=== PATIENT | male | born 1990 | race Caucasian/White ===

== ENCOUNTER 2020-11-21 21:27 | Emergency (ER) | payer BC, OTHER ==
[2020-11-21] MEDS ORDERED: Ondansetron 4 MG Tab.DIS PO ONE (22:09)
[2020-11-21] MEDS ORDERED: Ketorolac 60 MG/2 ML SDV IM ONE (22:09)
[2020-11-21] MEDS ORDERED: Ondansetron 4 MG/2 ML SDV IVPUSH ONE (22:16)
[2020-11-21] MEDS ORDERED: Sodium Chloride 0.9% 10 ML Syringe FLUSH PRN (22:16)
[2020-11-21] MEDS ORDERED: Ketorolac 30 MG/ML SDV IVPUSH ONE (22:16)
--- NOTE | 2020-11-21 22:16 | EDM.PDOC ---
ED HPI GENERAL MEDICAL PROBLEM - General Chief Complaint: Abdominal Pain Stated Complaint: ABDOM. PAIN RIGHT SIDE Time Seen by Provider: 11/21/20 22:05 Source of Information: Reports: Patient, Family, RN Notes Reviewed History Limitations: Reports: No Limitations - History of Present Illness INITIAL COMMENTS - FREE TEXT/NARRATIVE: 30-year-old gentleman presents emergency department day complaint of right flank pain, he states it wraps around to his back does shoot down into his groin pain is very intense he has had some nausea and vomiting no fevers no shortness of breath or chest pain pain started earlier today in the afternoon and has progressively gotten worse. There is a question of stones in his past however was not diagnosed was relieved with urination Right Upper Abdomen Pain Score (Numeric/FACES): 8 - Related Data Allergies Allergy/AdvReac Type Severity Reaction Status Date / Time Sulfa (Sulfonamide Allergy Cannot Verified 11/21/20 21:45 Antibiotics) Remember Home Meds: Home Meds Fexofenadine [Constanza] 1 tab PO DAILY 11/21/20 [History] Pseudoephedrine HCl [Sudafed] 1 tab PO BEDTIME 11/21/20 [History] Tamsulosin [Tamsulosin 24 Hr] 0.4 mg PO DAILY #10 cap.er 11/21/20 [Rx] Past Medical History Musculoskeletal History: Reports: Other (See Below) Other Musculoskeletal History: scoliosis - Infectious Disease History Infectious Disease History: Reports: Chicken Pox Social & Family History - Tobacco Use Tobacco Use Status *Q: Current Every Day Tobacco User Years of Tobacco use: 10 Packs/Tins Daily: 0.5 - Recreational Drug Use Recreational Drug Use: No ED ROS GENERAL - Review of Systems Review Of Systems: See Below Constitutional: Denies: Fever, Chills HEENT: Reports: No Symptoms Respiratory: Reports: No Symptoms Cardiovascular: Reports: No Symptoms GI/Abdominal: Reports: Abdominal Pain, Nausea, Vomiting : Reports: Flank Pain ED EXAM, GI/ABD - Physical Exam Exam: See Below Exam Limited By: No Limitations General Appearance: Alert, Mild Distress Respiratory/Chest: No Respiratory Distress, Lungs Clear, Normal Breath Sounds, No Accessory Muscle Use, Chest Non-Tender Cardiovascular: Regular Rate, Rhythm, No Murmur GI/Abdominal Exam: Soft, Tender (right flank food for him) Course - Vital Signs Last Recorded V/S: Last Vital Signs Temp 97.8 F 11/21/20 21:46 Pulse 72 11/21/20 21:46 Resp 18 11/21/20 21:46 BP 152/93 H 11/21/20 21:46 Pulse Ox 98 11/21/20 21:46 - Orders/Labs/Meds Orders: Active Orders 24 hr Category Date Time Status Peripheral IV Care [RC] . DIRECTED Care 11/21/20 22:17 Active Sodium Chloride 0.9% [Saline Flush] Med 11/21/20 22:16 Active 10 ml FLUSH ASDIRECTED PRN Peripheral IV Insertion Adult [OM.PC] Urgent Oth 11/21/20 22:16 Ordered Medication Orders Sodium Chloride (Sodium Chloride 0.9% 10 Ml Syringe) 10 ml FLUSH ASDIRECTED PRN PRN Reason: Keep Vein Open Last Admin: 11/21/20 22:24 Dose: 10 ml Documented by: CATRACHITO Labs: Laboratory Tests 11/21/20 11/21/20 11/21/20 Range/Units 22:00 22:00 22:09 WBC 17.8 H (4.5-11.0) K/uL RBC 4.80 (4.30-5.90) M/uL Hgb 15.2 H (12.0-15.0) g/dL Hct 45.3 (40.0-54.0) % MCV 94 (80-98) fL MCH 32 H (27-31) pg MCHC 34 (32-36) % Plt Count 254 (150-400) K/uL Neut % (Auto) 79.5 H (36-66) % Lymph % (Auto) 10.4 L (24-44) % [place] % (Auto) 9.5 H (2-6) % Eos % (Auto) 0.4 L (2-4) % Baso % (Auto) 0.2 (0-1) % Sodium 143 (140-148) mmol/L Potassium 3.7 (3.6-5.2) mmol/L Chloride 103 (100-108) mmol/L Carbon Dioxide 29 (21-32) mmol/L Anion Gap 10.8 (5.0-14.0) mmol/L BUN 29 H (7-18) mg/dL Creatinine 1.2 (0.8-1.3) mg/dL Est Cr Clr Drug Dosing 75.80 mL/min Estimated GFR (MDRD) > 60 (>60) Glucose 106 (74-106) mg/dL Calcium 9.5 (8.5-10.1) mg/dL Urine Color Yellow (YELLOW) Urine Appearance Clear (CLEAR) Urine pH >= 1.0 L (5.0-8.0) Ur Specific [place] 6.000 H (1.008-1.030) Urine Protein Negative (NEGATIVE) mg/dL Urine Glucose (UA) Normal (NEGATIVE) mg/dL Urine Ketones Negative (NEGATIVE) mg/dL Urine Occult Blood Moderate (NEGATIVE) Urine Nitrite Negative (NEGATIVE) Urine Bilirubin Negative (NEGATIVE) Urine Urobilinogen 0.2 (0.2-1.0) EU/dL Ur Leukocyte Esterase Negative (NEGATIVE) Urine RBC 0-5 (0-5) Urine WBC 0-5 (0-5) Ur Epithelial Cells Not seen Amorphous Sediment Few Urine Bacteria Few Urine Mucus Not seen Meds: Medications Generic Name Dose Route Start Last Admin Trade Name Freq PRN Reason Stop Dose Admin Sodium Chloride 10 ml 11/21/20 22:16 11/21/20 22:24 Sodium Chloride 0.9% 10 Ml Syringe FLUSH 10 ml ASDIRECTED PRN Administration Keep Vein Open Discontinued Medications Generic Name Dose Route Start Last Admin Trade Name Freq PRN Reason Stop Dose Admin Ketorolac Tromethamine 60 mg 11/21/20 22:09 Ketorolac 60 Mg/2 Ml Sdv IM 11/21/20 22:10 ONETIME ONE Ketorolac Tromethamine 30 mg 11/21/20 22:16 11/21/20 22:24 Ketorolac 30 Mg/Ml Sdv IVPUSH 11/21/20 22:17 30 mg ONETIME ONE Administration Ketorolac Tromethamine Confirm 11/21/20 22:19 Ketorolac 30 Mg/Ml Sdv Administered 11/21/20 22:20 Dose 30 mg .ROUTE .STK-MED ONE Ondansetron HCl 4 mg 11/21/20 22:09 Ondansetron 4 Mg Tab.Dis PO 11/21/20 22:10 ONETIME ONE Ondansetron HCl 4 mg 11/21/20 22:16 11/21/20 22:24 Ondansetron 4 Mg/2 Ml Sdv IVPUSH 11/21/20 22:17 4 mg ONETIME ONE Administration Ondansetron HCl Confirm 11/21/20 22:19 Ondansetron 4 Mg/2 Ml Sdv Administered 11/21/20 22:20 Dose 4 mg .ROUTE .STK-MED ONE Departure - Departure Time of Disposition: 23:43 Disposition: Home, Self-Care 01 Condition: Fair Clinical Impression: Nephrolithiasis - Discharge Information Prescriptions: Tamsulosin [Tamsulosin 24 Hr] 0.4 mg PO DAILY #10 cap.er Instructions: Kidney Stones, [id number] Referrals: PCP,None [Primary Care Provider] - Forms: ED Department Discharge Additional Instructions: Use the ketorolac as needed for pain control, this is for baseline pain if you have breakthrough pain use the narcotic hydrocodone. Use Zofran as needed for nausea and vomiting symptoms, use the Flomax to help facilitate passage of the stone. Please followup with your primary care provider in 3-5 days if not better, please call return to the emergency department with worsening of symptoms. Your medication of Flomax has been faxed to [facility] pharmacy Sepsis Event Note (ED) - Evaluation Sepsis Screening Result: No Definite Risk - Focused Exam Vital Signs: Vital Signs Temp Pulse Resp BP Pulse Ox 11/21/20 21:46 97.8 F 72 18 152/93 H 98 11/21/20 21:43 97.8 F 72 18 152/93 H 98 - My Orders Last 24 Hours: My Active Orders 11/21/20 22:16 Sodium Chloride 0.9% [Saline Flush] 10 ml FLUSH ASDIRECTED PRN Peripheral IV Insertion Adult [OM.PC] Urgent 11/21/20 22:17 Peripheral IV Care [RC] . DIRECTED - Assessment/Plan Last 24 Hours: My Active Orders 11/21/20 22:16 Sodium Chloride 0.9% [Saline Flush] 10 ml FLUSH ASDIRECTED PRN Peripheral IV Insertion Adult [OM.PC] Urgent 11/21/20 22:17 Peripheral IV Care [RC] . DIRECTED Plan: Assessment Acuity = acute Site and laterality = 4 mm nephrolithiasis right ureter Etiology = unknown Manifestations = pain Location of injury = Home Lab values = WBC elevated at 17 consistent leukocytosis remainder CBC unremarkable BMP unremarkable CT scan describes the nephrolithiasis Plan Beny Lee I did provide him a copy of his CT scan result prescription for Flomax 0.4 mg 1 tab p.o. daily faxed to [facility], [place] med prescriptions ketorolac 10 mg 1 tab p.o. 4 times daily as needed total #20, hydrocodone 5/325 1 tab p.o. every 4-6 hours as needed total #10 and Zofran 4 mg ODT 1 tab p.o. 3 times daily as needed total #5, follow-up primary care 3 to 5 days if not better This note was dictated using [employer]erd[employer] voice recognition software please call with any questions on syntax or grammar.
[2020-11-21] MEDS ORDERED: Ondansetron 4 MG/2 ML SDV ONE (22:19)
[2020-11-21] MEDS ORDERED: Ketorolac 30 MG/ML SDV ONE (22:19)
--- NOTE | 2020-11-21 23:13 | CRLCT ---
INDICATION: Right flank pain TECHNIQUE: CT Abdomen and pelvis without i.v. contrast. Coronal and sagittal reformats were obtained. COMPARISON: None FINDINGS: Lower chest: Unremarkable. Liver: Unremarkable. Spleen: Unremarkable. Pancreas: Unremarkable. Gallbladder: Unremarkable. Kidney: There is a 4 mm stone present in the right ureterovesicular junction causing mild hydroureter and mild renal pelvicaliectasis. There is a 1 mm stone present in the mid zone of the right kidney. Left kidney and left ureter are unremarkable. Adrenal: Unremarkable. Bowel: Unremarkable. The appendix is normal in appearance and size. Vascular: Unremarkable. Lymph: Unremarkable. Peritoneum: Unremarkable. No pneumoperitoneum is seen. No significant ascites is noted. Pelvis: Unremarkable. Soft tissue: Unremarkable. Bone: Mild dextroscoliosis of the thoracolumbar spine is present. IMPRESSION: 1. There is a 4 mm stone present in the right ureterovesicular junction causing mild hydroureter and mild renal pelvicaliectasis. Dictated by Sean Riley MD @ 11/21/2020 11:10:21 PM Please note that all CT scans at this facility use dose modulation, iterative reconstruction, and/or weight-based dosing when appropriate to reduce radiation dose to as low as reasonably achievable. Dictated by: Sean Riley MD @ 11/21/2020 23:11:47 (Electronically Signed)
[2020-11-22] MEDS ORDERED: Tamsulosin 0.4 MG Cap.ER PO ONE (00:07)
[2020-11-22] MEDS ORDERED: Tamsulosin 0.4 MG Cap.ER ONE (00:08)
== END 2020-11-22 00:16 | disposition home or self-care (01) ==
LOC: JP.ED 21:27
DX: N20.0 Calculus of kidney (principal); Z72.0 Tobacco use; Z88.2 Allergy status to sulfonamides
CPT/HCPCS: 36415; 74176; 80048; 81001; 85025; 96374; 96375; 99284; A9270; J1885; J2405